=== PATIENT | male | born 1955 | race Caucasian/White ===

== ENCOUNTER 2020-02-23 08:59 | Emergency (ER) | payer OTHER ==
[~2020-02-23] VITALS: Ht 177.8 cm; Wt 122.7 kg
[2020-02-23] MEDS ORDERED: LISINOPRIL10 MG (09:07)
[2020-02-23] MEDS ORDERED: CLONIDINE HCL0.3 M3 (09:08)
[2020-02-23] MEDS ORDERED: SYNTHROID75 MCG (09:08)
[2020-02-23 09:27] LABS: ABSOLUTE BASOPHILS 0.1 thou/uL (0.0-0.2); ABSOLUTE EOSINOPHILS 0.3 thou/uL (0.0-0.7); ABSOLUTE LYMPHOCYTES 1.7 thou/uL (0.8-5.3); ABSOLUTE MONOCYTES 0.9 thou/uL (0.0-1.2); ABSOLUTE NEUTROPHILS 10.1 thou/uL (1.6-8.1); BASOPHILS 0.6 %; EOSINOPHILS 2.1 %; HEMATOCRIT 48.3 % (42.0-52.0); HEMOGLOBIN 16.3 gm/dL (14.0-18.0); LYMPHOCYTES 12.7 %; MCH 30.1 pg (26.0-34.0); MCHC 33.8 g/dL (28.0-37.0); MCV 89.2 fL (80.0-100.0); MONOCYTES 6.7 %; MPV 9.2 fl. (7.2-11.1); NUCLEATED RBCS 0 /100WBC; PLATELET COUNT* 205 thou/uL (150-400); POLYS 77.9 %; RBC 5.42 mil/uL (4.50-6.00); RDW-CV 13.8 % (10.5-14.5)
[2020-02-23 09:30] LABS: CALCIUM 9.2 mg/dL (8.5-10.1); CREATININE 1.1 mg/dL (0.6-1.3); POTASSIUM 4.4 mmol/L (3.5-5.1)
[2020-02-23 09:34] LABS: APTT 27.6 Seconds (25.0-31.3); INR 1.1; PROTIME 11.2 Seconds (9.20-11.50)
[2020-02-23 09:43] LABS: CK-MB MASS 5.4 ng/mL (<0.5-3.6); MAGNESIUM 2.1 mg/dL (1.8-2.4); TOTAL BILIRUBIN 0.7 mg/dL (<0.1-1.0); TOTAL PROTEIN 7.7 g/dL (6.4-8.2)
[2020-02-23 10:02] VITALS: BP 123/67
--- NOTE | 2020-02-23 16:34 | EKG ---
[place] [address] ELECTROCARDIOGRAM REPORT Name: RADHAWENDY Room: [facility]#: [id number] Admission: 02/23/20 Attend Phys: Discharge: 02/23/20 Date of : 55 Date of Service: 02/23/20904 Report #: [id number] THIS REPORT FOR: //name// [facility] ED Test Date: 2020-02-23 Test Time: 09:05:26 Pat Name: WNEDY GARCIA Department: Room: Gender: [employer] Supervisor: : 1955 Requested By: Colby Adkins Order Number: [id number] MD: Isaak Merino Measurements Intervals [place] Rate: 82 P: 53 NM: 174 QRS: 35 QRSD: 83 T: 63 QT: 361 QTc: 422 Interpretive Statements Sinus rhythm Probable left atrial enlargement Baseline wander in lead(s) V4 No previous ECG available for comparison Electronically Signed On 02-23-2020 16:33:56 [employer]CE[employer]PORT COORDINATOR by Isaak Merino [email or web address] <ELECTRONICALLY SIGNED> By: Isaak Merino MD, [facility] 02/23/20 1633 0905 09 Isaak Merino MD, [facility] /EPI
== END 2020-02-23 10:05 | disposition home or self-care (01) ==
LOC: M.ERS 08:59
PROVIDERS: Family Medicine
DX: R07.9 Chest pain, unspecified (principal); I10 Essential (primary) hypertension; E03.9 Hypothyroidism, unspecified; Z79.899 Other long term (current) drug therapy; Z20.828 Contact with and (suspected) exposure to other viral communicable diseases